=== PATIENT | female | born 1985 | race Caucasian/White ===

== ENCOUNTER → 2018-01-11 13:00 | Observation (INO) ==
[2018-01-10 09:44] LABS: Bilirubin,Urine Negative (Negative); Blood,Urine Small (Negative); Clarity,Urine Cloudy (Clear); Color,Urine Dark Yellow (Yellow); Glucose,Urine (UA) Normal (Normal); Ketones,Urine Negative (Negative); Leukocyte Esterase,Urine Negative (Negative); Nitrite,Urine Positive (Negative); PH,Urine 6.5 pH Units (5.0-8.0); Protein,Urine Negative (Neg-Trace); Specific Gravity,Urine < 1.005 (1.010-1.025); Urobilinogen,Urine Normal (Normal)
[2018-01-10 09:46] LABS: Bacteria,Urine None Seen per hpf (None-Few); Hyaline Casts,Urine None Seen per lpf (None-Few); RBC,Urine 0-3 per hpf (0-3); Squamous Epithelial Cell,Urine Moderate per lpf (None-Few); WBC,Urine 0-3 per hpf (0-3)
[2018-01-10] MEDS: Betamethasone Acet/SodPhos 6 MG/ML MDV IM SCH (09:48)
[2018-01-10 09:52] LABS: Basophils # 0.1 K/mcL (0.0-0.2); Basophils % 0.3 %; Eosinophils # 0.1 K/mcL (0.0-0.6); Eosinophils % 0.3 %; Hematocrit 33.6 % (35.3-44.9); Hemoglobin 11.6 g/dL (11.5-15.4); Immature Granulocytes % 0.7 % (0-4); Lymphocytes # 3.9 K/mcL (0.6-4.6); Lymphocytes % 21.1 %; Mean Corpuscular HGB Conc 34.5 g/dL (31.6-35.5); Mean Corpuscular Hemoglobin 30.7 pg (28.0-33.3); Mean Corpuscular Volume 88.9 fL (83.0-100.0); Mean Platelet Volume 10.6 fL (9.4-12.4); Monocytes # 1.1 K/mcL (0.0-1.3); Monocytes % 5.9 %; Neutrophils # 13.2 K/mcL (1.6-8.9); Platelet Count 246 K/mcL (140-400); Red Blood Count 3.78 M/mcL (3.82-4.97); Segmented Neutrophils % 71.7 %
[2018-01-10 10:03] LABS: Alanine Aminotransferase 18 Units/L (7-52); Aspartate Amino Transferase 16 Units/L (13-39); BUN/Creatinine Ratio 9 (6-26); Blood Urea Nitrogen 6 mg/dL (6-20); Lactate Dehydrogenase 218 Units/L (140-271); Uric Acid 4.4 mg/dL (2.3-7.6); eGFR For Non-African Americans > 60 (> 60)
[2018-01-10 10:13] LABS: Amphetamine Screen,Urine Positive ng/mL (Cutoff=1000); Barbiturate Screen,Urine Negative ng/mL (Cutoff=200); Benzodiazepines Screen,Urine Negative ng/mL (Cutoff=200); Cannabinoid Screen,Urine Positive ng/mL (Cutoff = 50); Cocaine Screen,Urine Negative ng/mL (Cutoff= 300); Opiate Screen,Urine Negative ng/mL (Cutoff=300); Phencyclidine Screen,Urine Negative ng/mL (Cutoff=25)
[2018-01-10 10:13] LABS: Protein/Creatinine Ratio,Urine 0.17 mg/mg (0.00-0.20)
[2018-01-10 10:39] LABS: HIV-1&2 Antibody & p24 Ag Nonreactive (Nonreactive); Hepatitis B Surface Antigen Nonreactive (Nonreactive)
[2018-01-10 11:01] LABS: Rubella IgG Antibody POSITIVE (POSITIVE); Varicella Zoster IgG Antibody Positive
--- NOTE | 2018-01-10 20:15 | OB/GYN Progress Note ---
Date of Encounter: 01/10/18 Time of Encounter: 20:10 - Assessment and Plan (1) 30 weeks gestation of Current Visit: Yes Status: Acute Prob List: GHTN, Substance use (amphetamines, marijuana), Poor social status Plan: BMZ @ 9:48Am and she will stay till tomorrow AM for the 2nd shot, She got Rocephin and will be discharged with PO keflex, she received 20mg IV labetalol for severe range pressures, pressures are now in the normal range Subjective - Subjective Interval history: Tanya is a 32 y/o @ 30+4 weeks who presents to L&D for abd pain and high BP. She is a patient of Dr Colin and says that she was told she has high BP. Her BP on L&D was in the normal to severe range. No LOF, VB or ctxs. Patient is currently homeless and is a substance abuse user. Patient found to have a UTI. Objective - Vital Signs Vital Signs: Intake and Output 01/10/18 01/10/18 01/10/18 07:59 15:59 23:59 Other: Weight 80.104 kg Patient Weight 01/10/18 23:59 Weight 80.104 kg - Exam FHR: category 1 - Labs Labs: Abnormal lab results WBC 18.5 K/mcL (4.3-11.1) H 01/10/18 09:05 RBC 3.78 M/mcL (3.82-4.97) L 01/10/18 09:05 Hct 33.6 % (35.3-44.9) L 01/10/18 09:05 Neutrophils # 13.2 K/mcL (1.6-8.9) H 01/10/18 09:05 Urine Clarity Cloudy (Clear) A 01/10/18 08:38 Ur Specific [place] < 1.005 (1.010-1.025) L 01/10/18 08:38 Urine Blood Small (Negative) H 01/10/18 08:38 Urine Nitrite Positive (Negative) A 01/10/18 08:38 Ur Squamous Epith Cells Moderate per lpf (None-Few) H 01/10/18 08:38 Ur Culture Indicated? YES (NO) A 01/10/18 08:38 Ur Amphetamines Screen Positive ng/mL ([id number]) H 01/10/18 08:38 U Marijuana (THC) Screen Positive ng/mL (Cutoff = 50) H 01/10/18 08:38
[2018-01-11 01:48] LABS: Hepatitis C Virus Antibody Nonreactive (Nonreactive)
[2018-01-11 05:02] LABS: Basophils % 0.1 %; Eosinophils % 0.1 %; Hematocrit 32.6 % (35.3-44.9); Hemoglobin 11.3 g/dL (11.5-15.4); Immature Granulocytes % 0.7 % (0-4); Lymphocytes # 2.5 K/mcL (0.6-4.6); Lymphocytes % 14.2 %; Mean Corpuscular HGB Conc 34.7 g/dL (31.6-35.5); Mean Corpuscular Hemoglobin 31.2 pg (28.0-33.3); Mean Corpuscular Volume 90.1 fL (83.0-100.0); Mean Platelet Volume 10.4 fL (9.4-12.4); Monocytes # 1.1 K/mcL (0.0-1.3); Neutrophils # 13.9 K/mcL (1.6-8.9); Platelet Count 256 K/mcL (140-400); Red Blood Count 3.62 M/mcL (3.82-4.97); Red Cell Distribution Width 13.4 % (11.5-14.5); Segmented Neutrophils % 78.9 %
[2018-01-11 05:22] LABS: Alanine Aminotransferase 16 Units/L (7-52); Aspartate Amino Transferase 12 Units/L (13-39); BUN/Creatinine Ratio 12 (6-26); Blood Urea Nitrogen 7 mg/dL (6-20); Lactate Dehydrogenase 166 Units/L (140-271); eGFR For Non-African Americans > 60 (> 60)
--- NOTE | 2018-01-11 08:17 | Discharge Summary ---
Date of Encounter: 01/11/18 Time of Encounter: 08:15 - Discharge Diagnosis (1) UTI (urinary tract infection) in in third trimester Priority: Primary Status: Acute Comments: Treated with 2 doses of IV ATb Normotensive since 3am will discharge home with labor and when to return to triage precautions (2) 30 weeks gestation of Priority: Primary Status: Acute - Discharge Medications Prescriptions: cephALEXin [Keflex] 1,000 mg PO BID #28 capsule Home Medications: Vits #90/Iron Fum/FA [ Formula Tablet] 1 each PO DAILY [History] Calcium Carbonate [Tums] 1,000 mg PO Q4HR PRN tab.chew 01/11/18 [Rx] cephALEXin [Keflex] 1,000 mg PO BID #28 capsule 01/11/18 [Rx] Allergies/Adverse Reactions: 3 Allergy/AdvReac Type Severity Reaction Status Date / Time No Known Allergies Allergy Verified 12/28/17 16:47 Data Procedures and tests throughout hospitalization: Laboratory Tests 01/10/18 01/10/18 01/10/18 08:38 08:38 09:05 WBC 18.5 H RBC 3.78 L Hgb 11.6 Hct 33.6 L MCV 88.9 MCH 30.7 MCHC 34.5 RDW 13.0 Plt Count 246 MPV 10.6 Immature Gran % 0.7 Seg Neutrophils % 71.7 Lymphocytes % 21.1 Monocytes % 5.9 Eosinophils % 0.3 Basophils % 0.3 Neutrophils # 13.2 H Lymphocytes # 3.9 Monocytes # 1.1 Eosinophils # 0.1 Basophils # 0.1 BUN Creatinine Est GFR ( Amer) Est GFR (Non-Af Amer) BUN/Creatinine Ratio Uric Acid AST ALT Lactate Dehydrogenase Urine Color Dark Yellow Urine Clarity Cloudy A Urine pH 6.5 Ur Specific [place] < 1.005 L Urine Protein Negative Urine Glucose (UA) Normal Urine Ketones Negative Urine Blood Small H Urine Nitrite Positive A Urine Bilirubin Negative Urine Urobilinogen Normal Ur Leukocyte Esterase Negative Urine Microscopic RBC 0-3 Urine Microscopic WBC 0-3 Ur Squamous Epith Cells Moderate H Urine Bacteria None Seen Hyaline Casts None Seen Ur Culture Indicated? YES A Urine Creatinine Protein/Creatinin Ratio Urine Total Protein Urine Opiates Screen Negative Ur Barbiturates Screen Negative Ur Phencyclidine Scrn Negative Ur Amphetamines Screen Positive H U Benzodiazepines Scrn Negative Urine Cocaine Screen Negative U Marijuana (THC) Screen Positive H Ur Drug Screen Interp See Below T.pallidum Ab Interpret Hep Bs Antigen Hepatitis C Ab Screen HIV Ag/Ab Combo Qual Rubella IgG Antibody VZV IgG Antibody Blood Type 01/10/18 01/10/18 01/10/18 09:05 09:05 09:05 WBC RBC Hgb Hct MCV MCH MCHC RDW Plt Count MPV Immature Gran % Seg Neutrophils % Lymphocytes % Monocytes % Eosinophils % Basophils % Neutrophils # Lymphocytes # Monocytes # Eosinophils # Basophils # BUN 6 Creatinine 0.70 Est GFR ( Amer) > 60 Est GFR (Non-Af Amer) > 60 BUN/Creatinine Ratio 9 Uric Acid 4.4 AST 16 ALT 18 Lactate Dehydrogenase 218 Urine Color Urine Clarity Urine pH Ur Specific [place] Urine Protein Urine Glucose (UA) Urine Ketones Urine Blood Urine Nitrite Urine Bilirubin Urine Urobilinogen Ur Leukocyte Esterase Urine Microscopic RBC Urine Microscopic WBC Ur Squamous Epith Cells Urine Bacteria Hyaline Casts Ur Culture Indicated? Urine Creatinine Protein/Creatinin Ratio Urine Total Protein Urine Opiates Screen Ur Barbiturates Screen Ur Phencyclidine Scrn Ur Amphetamines Screen U Benzodiazepines Scrn Urine Cocaine Screen U Marijuana (THC) Screen Ur Drug Screen Interp T.pallidum Ab Interpret Negative Hep Bs Antigen Nonreactive Hepatitis C Ab Screen Nonreactive HIV Ag/Ab Combo Qual Nonreactive Rubella IgG Antibody POSITIVE VZV IgG Antibody Positive Blood Type 01/10/18 01/10/18 01/11/18 09:05 09:16 04:40 WBC 17.6 H RBC 3.62 L Hgb 11.3 L Hct 32.6 L MCV 90.1 MCH 31.2 MCHC 34.7 RDW 13.4 Plt Count 256 MPV 10.4 Immature Gran % 0.7 Seg Neutrophils % 78.9 Lymphocytes % 14.2 Monocytes % 6.0 Eosinophils % 0.1 Basophils % 0.1 Neutrophils # 13.9 H Lymphocytes # 2.5 Monocytes # 1.1 Eosinophils # 0.0 Basophils # 0.0 BUN Creatinine Est GFR ( Amer) Est GFR (Non-Af Amer) BUN/Creatinine Ratio Uric Acid AST ALT Lactate Dehydrogenase Urine Color Urine Clarity Urine pH Ur Specific [place] Urine Protein Urine Glucose (UA) Urine Ketones Urine Blood Urine Nitrite Urine Bilirubin Urine Urobilinogen Ur Leukocyte Esterase Urine Microscopic RBC Urine Microscopic WBC Ur Squamous Epith Cells Urine Bacteria Hyaline Casts Ur Culture Indicated? Urine Creatinine 24 Protein/Creatinin Ratio 0.17 Urine Total Protein 4 Urine Opiates Screen Ur Barbiturates Screen Ur Phencyclidine Scrn Ur Amphetamines Screen U Benzodiazepines Scrn Urine Cocaine Screen U Marijuana (THC) Screen Ur Drug Screen Interp T.pallidum Ab Interpret Hep Bs Antigen Hepatitis C Ab Screen HIV Ag/Ab Combo Qual Rubella IgG Antibody VZV IgG Antibody Blood Type O POSITIVE 01/11/18 04:40 WBC RBC Hgb Hct MCV MCH MCHC RDW Plt Count MPV Immature Gran % Seg Neutrophils % Lymphocytes % Monocytes % Eosinophils % Basophils % Neutrophils # Lymphocytes # Monocytes # Eosinophils # Basophils # BUN 7 Creatinine 0.59 L Est GFR ( Amer) > 60 Est GFR (Non-Af Amer) > 60 BUN/Creatinine Ratio 12 Uric Acid 4.0 AST 12 L ALT 16 Lactate Dehydrogenase 166 Urine Color Urine Clarity Urine pH Ur Specific [place] Urine Protein Urine Glucose (UA) Urine Ketones Urine Blood Urine Nitrite Urine Bilirubin Urine Urobilinogen Ur Leukocyte Esterase Urine Microscopic RBC Urine Microscopic WBC Ur Squamous Epith Cells Urine Bacteria Hyaline Casts Ur Culture Indicated? Urine Creatinine Protein/Creatinin Ratio Urine Total Protein Urine Opiates Screen Ur Barbiturates Screen Ur Phencyclidine Scrn Ur Amphetamines Screen U Benzodiazepines Scrn Urine Cocaine Screen U Marijuana (THC) Screen Ur Drug Screen Interp T.pallidum Ab Interpret Hep Bs Antigen Hepatitis C Ab Screen HIV Ag/Ab Combo Qual Rubella IgG Antibody VZV IgG Antibody Blood Type Labs on day of discharge: Labs from last 24 hours 01/11/18 01/11/18 01/10/18 04:40 04:40 09:16 WBC 17.6 H RBC 3.62 L Hgb 11.3 L Hct 32.6 L MCV 90.1 MCH 31.2 MCHC 34.7 RDW 13.4 Plt Count 256 MPV 10.4 Immature Gran % 0.7 Seg Neutrophils % 78.9 Lymphocytes % 14.2 Monocytes % 6.0 Eosinophils % 0.1 Basophils % 0.1 Neutrophils # 13.9 H Lymphocytes # 2.5 Monocytes # 1.1 Eosinophils # 0.0 Basophils # 0.0 BUN 7 Creatinine 0.59 L Est GFR ( Amer) > 60 Est GFR (Non-Af Amer) > 60 BUN/Creatinine Ratio 12 Uric Acid 4.0 AST 12 L ALT 16 Lactate Dehydrogenase 166 Urine Color Urine Clarity Urine pH Ur Specific [place] Urine Protein Urine Glucose (UA) Urine Ketones Urine Blood Urine Nitrite Urine Bilirubin Urine Urobilinogen Ur Leukocyte Esterase Urine Microscopic RBC Urine Microscopic WBC Ur Squamous Epith Cells Urine Bacteria Hyaline Casts Ur Culture Indicated? Urine Creatinine 24 Protein/Creatinin Ratio 0.17 Urine Total Protein 4 Urine Opiates Screen Ur Barbiturates Screen Ur Phencyclidine Scrn Ur Amphetamines Screen U Benzodiazepines Scrn Urine Cocaine Screen U Marijuana (THC) Screen Ur Drug Screen Interp T.pallidum Ab Interpret Hep Bs Antigen Hepatitis C Ab Screen HIV Ag/Ab Combo Qual Rubella IgG Antibody VZV IgG Antibody Blood Type 01/10/18 01/10/18 01/10/18 09:05 09:05 09:05 WBC RBC Hgb Hct MCV MCH MCHC RDW Plt Count MPV Immature Gran % Seg Neutrophils % Lymphocytes % Monocytes % Eosinophils % Basophils % Neutrophils # Lymphocytes # Monocytes # Eosinophils # Basophils # BUN Creatinine Est GFR ( Amer) Est GFR (Non-Af Amer) BUN/Creatinine Ratio Uric Acid AST ALT Lactate Dehydrogenase Urine Color Urine Clarity Urine pH Ur Specific [place] Urine Protein Urine Glucose (UA) Urine Ketones Urine Blood Urine Nitrite Urine Bilirubin Urine Urobilinogen Ur Leukocyte Esterase Urine Microscopic RBC Urine Microscopic WBC Ur Squamous Epith Cells Urine Bacteria Hyaline Casts Ur Culture Indicated? Urine Creatinine Protein/Creatinin Ratio Urine Total Protein Urine Opiates Screen Ur Barbiturates Screen Ur Phencyclidine Scrn Ur Amphetamines Screen U Benzodiazepines Scrn Urine Cocaine Screen U Marijuana (THC) Screen Ur Drug Screen Interp T.pallidum Ab Interpret Negative Hep Bs Antigen Nonreactive Hepatitis C Ab Screen Nonreactive HIV Ag/Ab Combo Qual Nonreactive Rubella IgG Antibody POSITIVE VZV IgG Antibody Positive Blood Type O POSITIVE 01/10/18 01/10/18 01/10/18 09:05 09:05 08:38 WBC 18.5 H RBC 3.78 L Hgb 11.6 Hct 33.6 L MCV 88.9 MCH 30.7 MCHC 34.5 RDW 13.0 Plt Count 246 MPV 10.6 Immature Gran % 0.7 Seg Neutrophils % 71.7 Lymphocytes % 21.1 Monocytes % 5.9 Eosinophils % 0.3 Basophils % 0.3 Neutrophils # 13.2 H Lymphocytes # 3.9 Monocytes # 1.1 Eosinophils # 0.1 Basophils # 0.1 BUN 6 Creatinine 0.70 Est GFR ( Amer) > 60 Est GFR (Non-Af Amer) > 60 BUN/Creatinine Ratio 9 Uric Acid 4.4 AST 16 ALT 18 Lactate Dehydrogenase 218 Urine Color Urine Clarity Urine pH Ur Specific [place] Urine Protein Urine Glucose (UA) Urine Ketones Urine Blood Urine Nitrite Urine Bilirubin Urine Urobilinogen Ur Leukocyte Esterase Urine Microscopic RBC Urine Microscopic WBC Ur Squamous Epith Cells Urine Bacteria Hyaline Casts Ur Culture Indicated? Urine Creatinine Protein/Creatinin Ratio Urine Total Protein Urine Opiates Screen Negative Ur Barbiturates Screen Negative Ur Phencyclidine Scrn Negative Ur Amphetamines Screen Positive H U Benzodiazepines Scrn Negative Urine Cocaine Screen Negative U Marijuana (THC) Screen Positive H Ur Drug Screen Interp See Below T.pallidum Ab Interpret Hep Bs Antigen Hepatitis C Ab Screen HIV Ag/Ab Combo Qual Rubella IgG Antibody VZV IgG Antibody Blood Type 01/10/18 08:38 WBC RBC Hgb Hct MCV MCH MCHC RDW Plt Count MPV Immature Gran % Seg Neutrophils % Lymphocytes % Monocytes % Eosinophils % Basophils % Neutrophils # Lymphocytes # Monocytes # Eosinophils # Basophils # BUN Creatinine Est GFR ( Amer) Est GFR (Non-Af Amer) BUN/Creatinine Ratio Uric Acid AST ALT Lactate Dehydrogenase Urine Color Dark Yellow Urine Clarity Cloudy A Urine pH 6.5 Ur Specific [place] < 1.005 L Urine Protein Negative Urine Glucose (UA) Normal Urine Ketones Negative Urine Blood Small H Urine Nitrite Positive A Urine Bilirubin Negative Urine Urobilinogen Normal Ur Leukocyte Esterase Negative Urine Microscopic RBC 0-3 Urine Microscopic WBC 0-3 Ur Squamous Epith Cells Moderate H Urine Bacteria None Seen Hyaline Casts None Seen Ur Culture Indicated? YES A Urine Creatinine Protein/Creatinin Ratio Urine Total Protein Urine Opiates Screen Ur Barbiturates Screen Ur Phencyclidine Scrn Ur Amphetamines Screen U Benzodiazepines Scrn Urine Cocaine Screen U Marijuana (THC) Screen Ur Drug Screen Interp T.pallidum Ab Interpret Hep Bs Antigen Hepatitis C Ab Screen HIV Ag/Ab Combo Qual Rubella IgG Antibody VZV IgG Antibody Blood Type Preliminary micro results at discharge 01/10/18 08:38 Urine Culture - Preliminary Urine,Clean Catch No significant growth. Date of admission: 01/10/18 08:10 Primary care physician: Paula Quezada MD Consults: 01/10/18 09:13 Consult to Proration Clerk (W&C) [CONS] Stat Reason For Exam: Reason for SW Consult: homeless, living in tent. No car. Discharging clinician: Nuria Nicole - Patient Status Disposition: Home, Self-Care Condition: Good Functional capacity at discharge: independent ambulation Overall status at discharge: patient is back to baseline - Discharge Instructions Follow Up With: Paula Quezada MD [Primary Care Provider] - Isaac Colin MD [Non-Partnered Physician] - - Diet and Activity Activity: resume usual activities as tolerated Diet: regular diet Hospital Course TRACK [employer]ER Reason for admission: other (UTI) Discharge diagnosis: other (UTI) Hospital course: Observation, IV ATB, Betamethasone course given, discharged in stable condition. Time Attestation: Total time spent providing and/or coordinating discharge services: Time Spent: Less than 30 minutes Exam - Constitutional General appearance IM: A&O X 3 - Respiratory Respiratory exam: Present: CTAB - Cardiovascular Cardiovascular exam IM: Present: RRR - GI/Abdominal GI/Abdominal exam IM: soft (gravid) - Extremities Exam Extremities exam IM: Present: normal capillary refill, normal inspection - Neurological Exam Neurological exam: normal gait, oriented X3 - VTE Reasons for not Prescribing Prophylaxis: Treatment not Indicated - Low risk for VTE
[2018-01-11] MEDS: Betamethasone Acet/SodPhos 6 MG/ML MDV IM SCH (09:51)
[2018-01-11 09:55] VITALS: BP 108/56
[~2018-01-11 13:00] MED LIST: *HR* Labetalol 20 MG/4 ML SYRINGE IVP ONE; *HR* Labetalol 20 MG/4 ML SYRINGE IVP STA; 0.9 % Sodium Chloride Mini Bag 100 ML ONE; Calcium Gluconate 1,000 MG/10 ML VIAL IVPB PRN; CefTRIAXone 2,000 MG VIAL ONE; Magnesium Sulfate 6 GM in 0.9 % Sodium Chloride 100 ML IVPB ONE; Ringers Solution, Lactated 1,000 ML IVC SCH; Ringers Solution, Lactated 1,000 ML ONE; cefTRIAXone 2,000 MG in Water for inj. (sterile) 20 ML 20 ML IVP SCH; cefTRIAXone 2,000 MG in Water for inj. (sterile) 20 ML 20 ML IVPB SCH
== END | disposition home or self-care (01) ==
LOC: 1NENULAB
PROVIDERS: ADMIT Student in an Organized Health Care Education/Training Program; ATTEND Student in an Organized Health Care Education/Training Program